=== PATIENT | male | born 1945 | race Caucasian/White ===

== ENCOUNTER 2016-08-22 20:19 | Observation (INO) | payer MEDICARE, BC ==
--- NOTE | 2016-08-22 20:40 | EDM.PDOC ---
ED HPI GENERAL MEDICAL PROBLEM - General Chief Complaint: Cardiovascular Problem Stated Complaint: chest pain Time Seen by Provider: 08/22/16 20:20 Source of Information: Reports: Patient History Limitations: Reports: No Limitations - History of Present Illness INITIAL COMMENTS - FREE TEXT/NARRATIVE: According to patient's , patient has been on the boat in the [place] all day [place]. It has been hot and humid day. Has been drinking beer all day. Towards the evening he got of the boat, got on the golf cart and he suddenly rolled his eyes backwards sitting on the chair in the boat. Pt did not completely loose consciousness. He started feeling weak and had 2 episodes of vomiting. Pt was alert and awake. No chest pain, shortness or breath or wheezing. But was sweating. He has been alert. Pt claims that he got of the boat and sat on the golf cart, he was exhausted and tired and felt light headed. In the emergency room he is alert, not in any discomfort and answering questions appropriately. He has not drunk any water and has been drinking alcohol all day. Onset: Today Associated Symptoms: Reports: Nausea/Vomiting, Weakness. Denies: Confusion, Chest Pain, Cough, Fever/Chills, Headaches, Loss of Appetite, Malaise, Rash, Seizure, Shortness of Breath - Related Data Allergies Allergy/AdvReac Type Severity Reaction Status Date / Time No Known Allergies Allergy Verified 08/22/16 20:34 Home Meds: Home Meds Aspirin [Halfprin] 81 mg PO DAILY 08/22/16 [History] Finasteride 5 mg PO DAILY 08/22/16 [History] Lisinopril 20 mg PO DAILY 08/22/16 [History] Tamsulosin HCl [Flomax] 0.4 mg PO DAILY 08/22/16 [History] ED ROS GENERAL - Review of Systems Review Of Systems: See Below Constitutional: Reports: Weakness. Denies: Fever, Chills, Night Sweats, Diaphoresis HEENT: Denies: Eye Discharge, Rhinitis, Sinus Problem, Throat Pain, Throat Swelling Respiratory: Denies: Shortness of Breath, Wheezing, Cough, Sputum Cardiovascular: Denies: Chest Pain, Lightheadedness GI/Abdominal: Denies: Abdominal Pain, Diarrhea, Nausea, Vomiting : Denies: Dysuria, Frequency, Pain, Urgency Musculoskeletal: Denies: Neck Pain, Shoulder Pain, Joint Pain, Joint Swelling Skin: Denies: Cyanosis, Jaundice, Pruritis, Rash Neurological: Denies: Dizziness, Headache, Numbness, Seizure, Syncope, Weakness ED EXAM, GENERAL - Physical Exam Exam: See Below Exam Limited By: No Limitations General Appearance: Alert, WD/WN, No Apparent Distress Eye Exam: Bilateral Eye: EOMI, PERRL Ears: Normal External Exam, Normal Canal, Hearing Grossly Normal, Normal TMs Ear Exam: Bilateral Ear: Auricle Normal, Canal Normal, TM normal Nose: Normal Inspection, Normal Mucosa, No Blood Throat/Mouth: Normal Inspection, Normal Lips, Normal Teeth, Normal Gums, Normal Oropharynx, Normal Voice, No Airway Compromise Head: Atraumatic, Normocephalic Neck: Normal Inspection, Supple, Non-Tender, Full Range of Motion Respiratory/Chest: No Respiratory Distress, Lungs Clear, Normal Breath Sounds, No Accessory Muscle Use, Chest Non-Tender Cardiovascular: Normal Peripheral Pulses, Regular Rate, Rhythm, No Edema, No Gallop, No JVD, No Rub, Systolic Murmur (2/6 in the 2nd) Peripheral Pulses: 2+: Radial (L), Radial (R) GI/Abdominal: Normal Bowel Sounds, Soft, Non-Tender, No Organomegaly, No Distention, No Abnormal Bruit, No Mass Back Exam: Normal Inspection, Full Range of Motion, NT Extremities: Normal Inspection, Normal Range of Motion, Non-Tender, Normal Capillary Refill, No Pedal Edema Neurological: Alert, Oriented, CN II-XII Intact, Normal Cognition, Normal Gait, Normal Reflexes, No Motor/Sensory Deficits Skin Exam: Warm, Intact EKG INTERPRETATION EKG Date: 08/22/16 Rhythm: NSR Rate (beats/min): 101 Elsa: normal P-wave: present QRS: normal ST-T: normal QT: normal Course - Vital Signs Text/Narrative:: Pt's EKG is normal, other than sinus tachy with rate of 90-100s. His chest xray appears normal. Vitals are stable. His clinical exam is normal. His CBC is normal. Troponin is is mildly elevated at 0.125. He does not have any cardiac symptoms, his vitals are stable and he is feeling fine. Plan is to admit patient for observation and repeat troponin in 8 hrs or sooner if he has chest pain or discomfort.. Pt is mildly dehydrated. CMP shows low sodium of 132 and potassium of 3.2.He was fishing all day in the boat and has been drinking alcohol , and has not drunk any other liquids. He got off the boat and felt exhausted and vaguely passed out for few seconds. He has been alert and awake. Feels tired. Might have mild dehydration with heat exhaustion. Pt did receive 500 cc Normal saline bolus followed by NS with Potassium 20meq at 125cc /hr. . - Orders/Labs/Meds Orders: Active Orders 24 hr Category Date Time Status EKG Documentation Completion [RC] ASDIRECTED Care 08/22/16 20:28 Active EKG Documentation Completion [RC] ASDIRECTED Care 08/22/16 20:29 Active Chest 1V Frontal [CR] Stat Exams 08/22/16 20:31 Taken ETOH [ETHANOL BLOOD MEDICAL] [CHEM] Stat Lab 08/22/16 20:40 Ordered INR,PT,PROTHROMBIN TIME [COAG] Stat Lab 08/22/16 20:29 Ordered PTT,PARTIAL THROMBOPLSTIN TIME [COAG] Stat Lab 08/22/16 20:29 Ordered Sodium Chloride 0.9% [Normal Saline] 500 ml Med 08/22/16 20:46 Active IV .BOLUS EKG 12 Lead [EK] Routine Ther 08/22/16 20:28 Ordered Medication Orders Sodium Chloride (Normal Saline) 500 mls @ 500 mls/hr IV .BOLUS ONE Stop: 08/22/16 21:45 Labs: Laboratory Tests 08/22/16 08/22/16 Range/Units 20:30 20:30 WBC 9.6 (4.0-11.0) K/uL RBC 3.80 L (4.50-6.50) M/uL Hgb 12.7 L (13.0-18.0) g/dL Hct 35.5 L (40.0-54.0) % MCV 93 (76-96) fL MCH 33.4 H (27.0-32.0) pg MCHC 35.8 H (31.0-35.0) g/dL RDW 12.8 (11.0-16.0) % Plt Count 149 L (150-400) K/uL MPV 10.5 H (6.0-10.0) fL Neut % (Auto) 39.2 L (45.0-70.0) % Lymph % (Auto) 46.9 H (20.0-40.0) % Campbell % (Auto) 10.9 H (3.0-10.0) % Eos % (Auto) 2.6 (1.0-5.0) % Baso % (Auto) 0.4 (0.0-0.5) % Neut # (Auto) 3.77 (2.00-7.50) K/uL Lymph # (Auto) 4.52 H (1.50-4.00) K/uL Campbell # (Auto) 1.05 H (0.20-0.80) K/uL Eos # (Auto) 0.25 (0.04-0.40) K/uL Baso # (Auto) 0.04 (0.02-0.10) K/uL Sodium 132 L (136-145) mmol/L Potassium 3.3 L (3.5-5.1) mmol/L Chloride 101 (98-107) mmol/L Carbon Dioxide 23.3 (21.0-32.0) mmol/L Anion Gap 11.0 (5.0-15.0) mmol/L BUN 14 (8-26) mg/dL Creatinine 1.07 (0.70-1.30) mg/dL Est Cr Clr Drug Dosing 62.15 mL/min Estimated GFR (MDRD) > 60 (>60) MLS/MIN BUN/Creatinine Ratio 13.1 (6-25) Glucose 121 H (74-100) mg/dL Calcium 7.9 L (8.5-10.1) mg/dL Total Bilirubin 0.7 (0.0-1.0) mg/dL AST 74 H (15-37) U/L ALT 58 (12-78) U/L Alkaline Phosphatase 57 (46-116) U/L Troponin I 0.125 H* (0.000-0.060) ng/mL Total Protein 6.9 (6.4-8.2) g/dL Albumin 3.5 (3.4-5.0) g/dL Globulin 3.4 (2.2-4.2) g/dL Albumin/Globulin Ratio 1.0 (0.8-2.0) Meds: Medications Generic Name Dose Route Start Last Admin Trade Name Freq PRN Reason Stop Dose Admin Sodium Chloride 500 mls @ 500 mls/hr 08/22/16 20:46 Normal Saline IV 08/22/16 21:45 .BOLUS ONE Departure - Departure Time of Disposition: 21:30 Disposition: Refer to Observation Condition: fair Clinical Impression: Dehydration, mild, Elevation of cardiac enzymes Forms: ED Department Discharge - Problem List & Annotations (1) Dehydration, mild SNOMED Code(s): 0235737672486 Code(s): E86.0 - DEHYDRATION Status: Acute (2) Elevation of cardiac enzymes SNOMED Code(s): 977241462 Code(s): R74.8 - ABNORMAL LEVELS OF OTHER SERUM ENZYMES Status: Acute - Problem List Review Problem List Initiated/Reviewed/Updated: Yes - My Orders Last 24 Hours: My Active Orders 08/22/16 20:28 EKG Documentation Completion [RC] ASDIRECTED EKG 12 Lead [EK] Routine 08/22/16 20:29 EKG Documentation Completion [RC] ASDIRECTED INR,PT,PROTHROMBIN TIME [COAG] Stat PTT,PARTIAL THROMBOPLSTIN TIME [COAG] Stat 08/22/16 20:31 Chest 1V Frontal [CR] Stat 08/22/16 20:40 ETOH [ETHANOL BLOOD MEDICAL] [CHEM] Stat 08/22/16 20:46 Sodium Chloride 0.9% [Normal Saline] 500 ml IV .BOLUS - Assessment/Plan Last 24 Hours: My Active Orders 08/22/16 20:28 EKG Documentation Completion [RC] ASDIRECTED EKG 12 Lead [EK] Routine 08/22/16 20:29 EKG Documentation Completion [RC] ASDIRECTED INR,PT,PROTHROMBIN TIME [COAG] Stat PTT,PARTIAL THROMBOPLSTIN TIME [COAG] Stat 08/22/16 20:31 Chest 1V Frontal [CR] Stat 08/22/16 20:40 ETOH [ETHANOL BLOOD MEDICAL] [CHEM] Stat 08/22/16 20:46 Sodium Chloride 0.9% [Normal Saline] 500 ml IV .BOLUS Assessment:: Mild dehydration with mild elevated troponin Plan: Pt's EKG is normal, other than sinus tachy with rate of 90-100s. His chest xray appears normal. Vitals are stable. His clinical exam is normal. His CBC is normal. Troponin is is mildly elevated at 0.125. He does not have any cardiac symptoms, his vitals are stable and he is feeling fine. Plan is to admit patient for observation and repeat troponin in 8 hrs or sooner if he has chest pain or discomfort.. Pt is mildly dehydrated. CMP shows low sodium of 132 and potassium of 3.2.He was fishing all day in the boat and has been drinking alcohol , and has not drunk any other liquids. He got off the boat and felt exhausted and vaguely passed out for few seconds. He has been alert and awake. Feels tired. Might have mild dehydration with heat exhaustion. Pt did receive 500 cc Normal saline bolus followed by NS with Potassium 20meq at 125cc /hr. .
[2016-08-22] MEDS ORDERED: Sodium Chloride 0.9% 500 ML IV ONE (20:46)
[2016-08-22] MEDS ORDERED: Sodium Chloride 0.9% 10 ML Syringe FLUSH PRN (21:46)
[2016-08-22] MEDS ORDERED: NS + KCl 20mEq/L 1,000 ML IV SCH (22:00)
[2016-08-23] MEDS ORDERED: Clopidogrel 75 MG Tab ONE (05:13)
[2016-08-23] MEDS ORDERED: Clopidogrel 75 MG Tab PO ONE (05:23)
[2016-08-23] MEDS ORDERED: Metoprolol Succinate 25 MG Tab.ER PO STA (05:24)
[2016-08-23] MEDS ORDERED: atorvaSTATin 80 MG Tab PO ONE (05:25)
[2016-08-23] MEDS ORDERED: Metoprolol Tartrate 25 MG Tab ONE (05:27)
[2016-08-23] MEDS ORDERED: Heparin Sodium/D5W 500 ML ONE (05:28)
[2016-08-23] MEDS ORDERED: atorvaSTATin 80 MG Tab ONE (05:28)
[2016-08-23] MEDS ORDERED: Heparin Sodium 5,000 Units/ML Vial ONE (05:28)
[2016-08-23] MEDS ORDERED: Heparin Sodium/D5W 25,000 UNITS/500 ML BAG IV SCH (05:30)
[2016-08-23] MEDS ORDERED: Heparin Sodium 5,000 UNITS/0.5 ML Syringe IVPUSH ONE (05:33)
[2016-08-23] MEDS ORDERED: Nitroglycerin 0.4 MG Tab.SL ONE (05:39)
--- NOTE | 2016-08-23 05:47 | PCM.DCSUM1 ---
Discharge Summary - Hospital Course Free Text/Narrative:: Pt presented with transient episode of light headedness last evening. On workup in the emergency room. His CBC was normal. His EKG is in sinus tachycardia between 90-105/min heart rate. He was asymptomatic in the emergency room. His troponin was mildly elevated with normal EKG findings. Pt was admitted for followup cardiac enzymes, to repeat troponin in 8 hrs. As he had not had any fluid all day and sitting out in the boat fishing, and his Sodium and potassium were mildly low, received bolus NS of 500cc and started on NS with 20meq of KCL at 125/hr. Pt has remained Asymptomatic and his laboratory monitor appear normal with his rate around 90s. His repeat Troponin done today morning at 4:30 am is up from 0.125 to 0.274. Pt has Non-stemi. Pt is asymptomatic. No chest pain or shortness of breath. He has been on 2 litres [place] O2 all night. At 4:40 Am today, I did contact the blood bank worker education and development manager at [facility] and discuss patient with him. His recommendation was to start Plavix 600mg oral and transfer patient down to [facility] for possible cardiac cauterizations. Did contact Hospitalist education and development manager, Dr.Sura Johnson. And discuss the transfer. As per 's request Heparin drip per Non-stemi protocol has been started 5000 Iv bolus followed by 1000units per hr, Metoprolol 12.5mg po stat and Lipitor 80mg Po stat given. Pt has remained asymptomatic. His last Blood pressure was 152/79mmhg. Pt will be transferred to [facility] by [facility] ambulance. Pt is hemodynamically stable at the time of transfer. . HPI Initial Comments: See H&P Brief History: Pt presented to emergency room with short episode of ligthheadedness with vomiting. workup showed mild elevation of troponin, was admitted for serial Cardaic enzymes and close cardaic monitroing and Iv fhydration. - Discharge Data Discharge Date: 08/23/16 Discharge Disposition: DC/Tfer to Acute Hospital 02 Condition: Good - Discharge Diagnosis/Problem(s) (1) Dehydration, mild SNOMED Code(s): 4805011445472 ICD Code: E86.0 - DEHYDRATION Status: Acute Current Visit: Yes (2) Elevation of cardiac enzymes SNOMED Code(s): 976941388 ICD Code: R74.8 - ABNORMAL LEVELS OF OTHER SERUM ENZYMES Status: Acute Current Visit: Yes - Patient Instructions Diet: NPO Activity: Bedrest - Discharge Plan Home Medications: Home Meds Aspirin [Halfprin] 81 mg PO DAILY 08/22/16 [History] Finasteride 5 mg PO DAILY 08/22/16 [History] Lisinopril 20 mg PO DAILY 08/22/16 [History] Tamsulosin HCl [Flomax] 0.4 mg PO DAILY 08/22/16 [History] Forms: ED Department Discharge - Discharge Summary/Plan Comment DC Time >30 min.: Yes Discharge Summary/Plan Comment: At 4:40 Am today, I did contact the blood bank worker education and development manager at [facility] and discuss patient with him. His recommendation was to start Plavix 600mg oral and transfer patient down to [facility] for possible cardiac cauterizations. Did contact Hospitalist education and development manager, Dr.Sura Johnson. And discuss the transfer. As per 's request Heparin drip per Non-stemi protocol has been started 5000 Iv bolus followed by 1000units per hr, Metoprolol 12.5mg po stat and Lipitor 80mg Po stat given. Pt has remained asymptomatic. His last Blood pressure was 152/79mmhg. Pt will be transferred to [facility] by [facility] ambulance. Pt is hemodynamically stable at the time of transfer. - General Info Date of Service: 08/23/16 Functional Status: Reports: ambulating, urinating - Review of Systems General: Denies: Fever, Weakness, Fatigue, Malaise HEENT: Denies: sinus congestion, sore throat Pulmonary: Denies: shortness of breath, pleuritic chest pain, cough, sputum Cardiovascular: Denies: Chest Pain, Palpitations, Lightheadedness Gastrointestinal: Denies: Abdominal pain, Nausea, Vomiting Genitourinary: Denies: frequency, burning, pain Musculoskeletal: Denies: neck pain, shoulder pain, joint pain, joint swelling Skin: Denies: pruritis, rash Neurological: Denies: Confusion, Headache, Syncope - Patient Data Vitals - Most Recent: Last Vital Signs Temp 98.4 F 08/23/16 05:28 Pulse 101 H 08/23/16 05:28 Resp 16 08/23/16 05:28 BP 152/79 H 08/23/16 05:28 Pulse Ox 98 08/23/16 05:28 Weight - Most Recent: 90.718 kg I&O - Last 24 hours: Intake & Output 08/22/16 08/22/16 08/23/16 14:59 22:59 06:59 Intake Total 1240 Output Total 300 1100 Balance -300 140 Lab Results - Last 24 hrs: Laboratory Results - last 24 hr 08/23/16 Range/Units 04:30 Troponin I 0.271 H* D (0.000-0.060) ng/mL Med Orders - Current: Current Medications Aspirin (Halfprin) 81 mg PO DAILY FRANCA Finasteride (Proscar) 5 mg PO DAILY FRANCA Potassium Chloride/Sodium Chloride (Normal Saline With 20 Meq Kcl) 1,000 mls @ 125 mls/hr IV ASDIRECTED FRANCA Last Admin: 08/22/16 22:15 Dose: 125 mls/hr Heparin Sodium/Dextrose (Heparin 25,000 Units In D5w 500 Ml) 25,000 units in 500 mls @ 21.772 mls/hr IV TITRATE FRANCA; 12 UNITS/KG/HR PRN Reason: Protocol Lisinopril (Prinivil) 20 mg PO DAILY FRANCA Sodium Chloride (Saline Flush) 10 ml FLUSH ASDIRECTED PRN PRN Reason: Keep Vein Open Tamsulosin HCl (Flomax) 0.4 mg PO DAILY FRANCA Discontinued Medications Atorvastatin Calcium (Lipitor) 80 mg PO ONETIME ONE Stop: 08/23/16 05:26 Atorvastatin Calcium (Lipitor) Confirm Administered Dose 80 mg .ROUTE .STK-MED ONE Stop: 08/23/16 05:29 Clopidogrel Bisulfate (Plavix) Confirm Administered Dose 600 mg .ROUTE .STK-MED ONE Stop: 08/23/16 05:14 Last Admin: 08/23/16 05:27 Dose: 600 mg Clopidogrel Bisulfate (Plavix) 600 mg PO ONETIME ONE Stop: 08/23/16 05:24 Heparin Sodium (Porcine) (Heparin Sodium) Confirm Administered Dose 5,000 units .ROUTE .STK-MED ONE Stop: 08/23/16 05:29 Heparin Sodium (Porcine) (Heparin Sodium) 5,000 units IVPUSH ONETIME ONE Stop: 08/23/16 05:34 Sodium Chloride (Normal Saline) 500 mls @ 500 mls/hr IV .BOLUS ONE Stop: 08/22/16 21:45 Last Admin: 08/22/16 20:50 Dose: 500 mls/hr Heparin Sodium/Dextrose (Heparin 25,000 Units In D5w 500 Ml) Confirm Administered Dose 500 mls @ as directed .ROUTE .STK-MED ONE Stop: 08/23/16 05:29 Metoprolol Succinate (Toprol Xl) 12.5 mg PO STAT STA Stop: 08/23/16 05:25 Metoprolol Tartrate (Lopressor) Confirm Administered Dose 25 mg .ROUTE .STK-MED ONE Stop: 08/23/16 05:28 - Exam Quality Assessment: Reports: supplemental oxygen General: Reports: alert, oriented HEENT: Reports: Pupils equal, Pupils reactive, EOMI, Mucous membr. moist/pink Neck: Reports: supple Lungs: Reports: Clear to auscultation, Normal respiratory effort Cardiovascular: Reports: Regular Rate, Regular Rhythm, Murmurs (2/6 PSM) Abdomen: Reports: bowel sounds present, soft, no tenderness, no distension Extremities: Reports: no edema, normal pulses Skin: Reports: warm, intact *Q Meaningful Use (DIS) - VTE *Q VTE Criteria *Q: - Stroke *Q Stroke Criteria *Q: - AMI *Q AMI Criteria *Q:
[2016-08-23 06:06] VITALS: BP 133/80
[2016-08-23] MEDS ORDERED: Finasteride 5 MG Tab PO SCH (08:00)
[2016-08-23] MEDS ORDERED: Aspirin 81 MG Tab.EC PO SCH (08:00)
[2016-08-23] MEDS ORDERED: Tamsulosin 0.4 MG Cap.ER PO SCH (08:00)
[2016-08-23] MEDS ORDERED: Lisinopril 20 MG Tab PO SCH (08:00)
--- NOTE | 2016-08-23 09:14 | CR ---
Date of Service: 08/22/16 Clinical Data: Weakness. AP PORTABLE CHEST No priors. The heart is enlarged. The lungs appear clear. No pneumothorax. No pleural effusions. No other significant finding. [id number] [facility]
== END 2016-08-23 06:45 ==
LOC: LB.ED 20:19 → UNDOADMOB 21:20 → LB.MS 21:20 → UNDODISOB 08-23 06:45
PROVIDERS: ADMIT Family Medicine; ATTEND Family Medicine
DX: E86.0 Dehydration (principal); R74.8 Abnormal levels of other serum enzymes; Z79.82 Long term (current) use of aspirin; Z79.899 Other long term (current) drug therapy; R07.9 Chest pain, unspecified
CPT/HCPCS: 36415; 71010; 80053; 84484; 85025; 85610; 85730; 93005; 96361; 96374; 96375; 99217; 99220; 99285; A0425; A0429; A9270; G0378; G0480; J1644; J3480; J7040; 96360; A0888-GY